=== PATIENT | female | born 1950 | race Caucasian/White ===

== ENCOUNTER 2020-02-05 08:54 | Day surgery (SDC) | payer MEDICARE ==
[2020-02-02 17:20] LABS: BASOPHILS # (AUTO) 0.1 X10'3 (0-0.2); BASOPHILS % (AUTO) 0.8 % (0-1); EOSINOPHILS # (AUTO) 0.1 X10'3 (0-0.9); LYMPHOCYTES # (AUTO) 1.9 X10'3 (1.1-4.8); LYMPHOCYTES % (AUTO) 29.6 % (21-51); MEAN CORPUSCULAR HEMOGLOBIN 29.8 PG (27.0-31.0); MEAN CORPUSCULAR HGB CONC 32.8 g/dL (33.0-36.5); MEAN CORPUSCULAR VOLUME 90.8 FL (78-98); MEAN PLATELET VOLUME 7.9 FL (7.4-10.4); MONOCYTES # (AUTO) 0.4 X10'3 (0-0.9); MONOCYTES % (AUTO) 6.3 % (2-12); NEUTROPHILS # (AUTO) 3.9 X10'3 (1.8-7.7); NEUTROPHILS % (AUTO) 61.3 % (42-75); PRE OP HEMATOCRIT 41.5 % (35.0-45.0); PRE OP HEMOGLOBIN 13.6 g/dL (12.0-16.0); PRE OP PLATELET COUNT 301 X10'3 (140-440); RED BLOOD COUNT 4.57 X10'6 (4.20-5.60); RED CELL DISTRIBUTION WIDTH 13.9 % (11.5-14.5)
[2020-02-02 17:32] LABS: ALBUMIN 3.8 G/DL (3.4-5.0); ALBUMIN/GLOBULIN RATIO 1.2 (1.1-1.5); ALKALINE PHOSPHATASE 87 IU/L (46-116); BLOOD UREA NITROGEN 16 MG/DL (7-18); BUN/CREATININE RATIO 16.7 (6.6-38.0); CALCIUM 8.8 MG/DL (8.5-10.1); CHLORIDE 108 MMOL/L (99-107); CREATININE 0.96 MG/DL (0.40-0.90); PRE OP ALT 39 U/L (30-65); PRE OP ANION GAP 11 (8-16); PRE OP AST 26 U/L (10-37); PRE OP BILIRUB, TOTAL 0.3 MG/DL (0.0-1.0); PRE OP GLUCOSE 90 MG/DL (70-104); PRE OP SODIUM 145 MMOL/L (135-145); TOTAL CARBON DIOXIDE 26.5 MMOL/L (24-32); TOTAL PROTEIN 7.1 G/DL (6.4-8.2); eGFR 58 ML/MIN
[2020-02-05] VITALS (14 sets, daily range): BP systolic 130–160; BP diastolic 56–85
[~2020-02-05] VITALS: Ht 172.7 cm; Wt 115.9 kg
[~2020-02-05 08:54] MED LIST: ACET-2119 PO; ASCO1CAP4 PO; ASCO500C17 PO; ASPI-611 PO; B CO1TAB7 PO; CALC500T63 PO; ERGO400C PO; IBUP-2697 PO; LACT1CAP65 PO; MULT-1085 PO; OMEG-79 PO; TURM538C PO; VANCOMYCIN 1,500MG inj. 1,500 MG in normal saline 500ml IV soln 500 ML IV ONE; VITA80008 PO; ZINC50TA67 PO; famotidine 20mg tablet PO ONE; ringers solution, lacted 1,000 ML IV SCH
[2020-02-05] MEDS ORDERED: BUPIVAcaine/PF 2.5 mg/ml (0.25%) 30ml vial ONE (09:27)
[2020-02-05 10:02] LABS: CLARITY,URINE CLEAR (Clear); COLOR,URINE YELLOW (Yellow); GLUCOSE, URINE NEGATIVE (Neg); KETONES,URINE NEGATIVE (Neg); LEUKOCYTE ESTERASE ,URINE NEGATIVE (Neg); NITRITES, URINE NEGATIVE (Neg); OCCULT BLOOD,URINE TRACE-INTACT (Neg); PROTEIN,URINE NEGATIVE (Neg); UROBILINOGEN,URINE 0.2 E.U/dL (0.2-1.0)
[2020-02-05] MEDS ORDERED: fentaNYL/PF 50MCG/1 ML 2ML syringe ONE (10:49)
[2020-02-05] MEDS ORDERED: MIDAZolam 5mg/5ml vial ONE (10:49)
[2020-02-05 10:50] LABS: UA COLLECTION TYPE NON-SPECIFIED
[2020-02-05] MEDS ORDERED: propofol inj 20 ML IV ONE (10:50)
[2020-02-05] MEDS ORDERED: ROPIVAcaine 0.5% (5mg/ml) 30ml vial ONE ×2 (10:50)
[2020-02-05] MEDS ORDERED: LIDOcaine 2% (20mg/ml) 5ml vial ONE (10:50)
--- NOTE | 2020-02-05 10:51 | NUR ---
COVID RESULTS NOT AVAILABLE YET. PT ASYMPTOMATIC. NO TEMP. HAS NOT TRAVELED OR BEEN EXPOSED TO ANYONE POSITIVE FOR COVID. PT STATES SHE HAS A WALKER AND A SCOTTER AT HOME FOR USE POSTOP
[2020-02-05 10:55] LABS: BACTERIA,URINE NONE SEEN /HPF (Neg); MUCUS STRANDS FEW /LPF (Neg); RBC,URINE 0-2 /HPF (0-2); SQUAMOUS EPITHELIAL CELL,UR FEW /LPF (FEW); WBC,URINE NONE SEEN /HPF (0-4)
[2020-02-05] MEDS ORDERED: sevoflurane 250ml liquid IH ONE (11:04)
[2020-02-05] MEDS ORDERED: ondansetron/PF 4mg/2ml inj ONE (11:44)
[2020-02-05] MEDS ORDERED: dexamethasone sod phosphate 4mg/ml inj. ONE (11:44)
[2020-02-05] MEDS ORDERED: bacitracin 15gm ointment TP ONE (11:45)
[2020-02-05] MEDS ORDERED: ringers solution, lacted 1,000 ML IV SCH (12:06)
[2020-02-05] MEDS ORDERED: morphine 2 MG/ML inj. syringe IV PRN (12:10)
[2020-02-05] MEDS ORDERED: morphine 4 MG/ML inj SYRINge IV PRN (12:10)
[2020-02-05] MEDS ORDERED: ondansetron/PF 4mg/2ml inj IV PRN (12:10)
[2020-02-05] MEDS ORDERED: hydrALAZINE 20mg/ml inj. IV PRN (12:10)
[2020-02-05] MEDS ORDERED: fentaNYL/PF 50MCG/1 ML 2ML syringe IV PRN ×2 (12:10)
[2020-02-05] MEDS ORDERED: enalaprilat dihydrate 2.5mg/2ml vial IV PRN (12:10)
--- NOTE | 2020-02-05 12:50 | NUR ---
RECEIVED FROM OR VIA [facility] ACCOMPANIED BY ANESTHESIOLOGIST DR CHAMPION, REPORT GIVEN. PT DROWSY BUT AROUSES EASILY AND DENIES PAIN AT THIS TIME. 20 GAUGE PIV L HAND PATENT AND RUNNING LR AT 100 ML/HR. DRESSING RLE: ADAPTIC, 4X4,WEBRIL, JOSE WRAP, SPLINT; CDI. SKIN PINK AND WARM WITH GOOD CAP REFILL, PERIPHERAL PULSES PALPABLE EXCEPT RLE COVERED WITH SPLINT.
--- NOTE | 2020-02-05 14:50 | NUR ---
DENIES PAIN AT THIS TIME. 20 GAUGE PIV L HAND DC/D WITH CATH TIP INTACT. DRESSING RLE: ADAPTIC, 4X4,WEBRIL, JOSE WRAP, SPLINT; CDI. SKIN PINK AND WARM WITH GOOD CAP REFILL, PERIPHERAL PULSES PALPABLE EXCEPT RLE COVERED WITH SPLINT. VSS, TOLERATING FLUIDS, URINATING WELL. DISCHARGE INSTRUCTIONS GIVEN AND PT VERBALIZED UNDERSTANDING. TRANSPORTED VIA WHEELCHAIR TO [facility] TO HOME.
== END 2020-02-05 14:50 | disposition home or self-care (01) ==
LOC: PAS 08:54
PROVIDERS: ATTEND Podiatrist Foot & Ankle Surgery
DX: S82.491A Other fracture of shaft of right fibula, initial encounter for closed fracture (principal); G89.18 Other acute postprocedural pain; G47.33 Obstructive sleep apnea (adult) (pediatric); K21.9 Gastro-esophageal reflux disease without esophagitis; M19.90 Unspecified osteoarthritis, unspecified site; N18.3 Chronic kidney disease, stage 3 (moderate); E66.01 Morbid (severe) obesity due to excess calories; Z68.38 Body mass index [BMI] 38.0-38.9, adult; Z98.890 Other specified postprocedural states; Z87.891 Personal history of nicotine dependence; Z88.5 Allergy status to narcotic agent; Z88.0 Allergy status to penicillin; Z79.82 Long term (current) use of aspirin; Z11.59 Encounter for screening for other viral diseases; Z79.899 Other long term (current) drug therapy; X58.XXXA Exposure to other specified factors, initial encounter; Y93.89 Activity, other specified; Y92.89 Other specified places as the place of occurrence of the external cause; Y99.8 Other external cause status
CPT/HCPCS: 27792; 36415; 64445; 64447; 73590; 76000; 80053; 81001; 82948; 85025; 93005; A6223; C1713; J1100; J2001; J2250; J2405; J2704; J3010; J3370; J3490; J7040; J7120; U0003; A4215; A4618; A6253; A6449; A7000; J2795